=== PATIENT | female | born 1995 | race Caucasian/White ===

== ENCOUNTER 2025-08-18 08:40 | Outpatient (CLI) | payer OTHER, SELFPAY | END 2025-08-18 08:41 | disposition home or self-care (01) | LOC: NFLDREF 08-21 04:41 | PROVIDERS: Visit Provider Advanced Practice Midwife | DX: Z34.93 Encounter for supervision of normal pregnancy, unspecified, third trimester (principal) | CPT/HCPCS: 85027; 86592 ==

== ENCOUNTER 2025-08-20 08:30 | Outpatient (CLI) | payer OTHER, SELFPAY | END 2025-08-20 08:31 | disposition home or self-care (01) | LOC: NFLDREF 08-25 21:16 | PROVIDERS: Visit Provider Advanced Practice Midwife | DX: Z34.93 Encounter for supervision of normal pregnancy, unspecified, third trimester (principal) | CPT/HCPCS: 82951; 82952 ==

== ENCOUNTER 2025-08-24 08:57 | Outpatient (CLI) | payer OTHER, SELFPAY ==
[2025-08-24] VITALS (23 sets, daily range): BP systolic 144–183; BP diastolic 96–110; PULSE 104–119; O2SAT 94–98
--- NOTE | 2025-08-24 09:13 | CRLHL7_ITS ---
For Patients: As a result of the Cures Act, medical imaging exams and procedure reports are released immediately into your electronic medical record. You may view this report before your referring provider. If you have questions, please contact your health care provider. OB ULTRASOUND BIOPHYSICAL PROFILE CLINICAL HISTORY: Arrythmia. TECHNIQUE: Real time strong scale imaging of the fetus was performed. Transabdominal imaging performed. COMPARISON: None. FINDINGS: RICHARD by US: 10/30/2025. GA: 30 weeks 3 days. Gestation: Single. Cervix: Not visualized. Positioning: Breech. Dopplers: Heart Rate: 162 bpm. IMPRESSION: 1. Biophysical profile 03/15 with absent respiratory activity. 2. arrythmia. Robin Manning M.D. Diagnostic Radiologist [email or web address] Transcribed: 10:45 am DW/Dictated by: Robin Manning MD @ 08/24/2025 10:36:00 AM (Electronically Signed)
[2025-08-24 09:31] LABS: Hematocrit* 36.4 % (33.0-51.0); Hemoglobin* 12.1 gm/dL (12.0-16.0); Mean Corpuscular HGB Conc 33 gm/dL (32-36); Mean Corpuscular Hemoglobin 29 pg (26-34); Mean Corpuscular Volume 88 fL (80-100); Red Blood Count* 4.15 m/uL (4.00-5.20); White Blood Count* 12.76 K/uL (4.50-11.00)
[2025-08-24 09:40] LABS: Slide Review Reflex No
[2025-08-24 09:41] LABS: Appearance Urine Clear (Clear)
[2025-08-24 10:00] LABS: Protein Creatinine Ratio Urine 0.58 (0-0.19)
[2025-08-24 10:34] LABS: Blood Urea Nitrogen* 8 mg/dL (5-24); Creatinine* 0.5 mg/dL (0.5-1.5); Estimated Glomerular Filt Rate 129 ml/min
[2025-08-24 10:35] LABS: Alanine Aminotransferase* 23 U/L (4-35); Aspartate Amino Transferase* 27 U/L (12-35)
--- NOTE | 2025-08-24 10:50 | P.OBT_ITS ---
History of Present Illness History of Present Illness Date Seen: 08/24/25 History of Present Illness: Eboni is 30 year old at 30 3/7 weeks gestation by 1st trimester US, RICHARD 10/30/2025, presenting for evaluation of sustained elevated BP in clinic. She was sent to triage for further evaluation and has had subsequent mild range blood pressures followed by severe range blood pressures. She was initially difficult to monitor due to audible arrhythmia therefore BPP was ordered. BPP was 6/8, 2 off for breathing. She has had mild range to severe range blood pressures, none that have been treated at this time. Patient is otherwise asymptomatic. She has reported a mild headache but feels its from the chaos this morning and lack of sleep. She denies any cramping or contractions, leaking of fluid, or bleeding. She does endorse movement. Consulted with OB who recommended MFM consult. [facility] MFM consulted who discussed that she would recommend we call this Pre-eclampsia with severe features at this time. She recommended transfer to [place] antepartum, start magnesium bolus, steroids, and treating BP per protocol. P/c ratio was available at time of consultation, 0.58 with previous result in early of 0.1. All other labs were pending but have since r esulted as WNL, AST 27, ALT 23. Eboni transferred to [facility] at 28 3/7 weeks gestation for care. At the time of transfer, she reported she had been diagnosed with Chronic HTN and had been started on medications around 17 weeks off but that they made her feel awful and short of breath with breathing concerns so she stopped them shortly after. Her blood pressure at her transfer visit was normotensive and she had reported normotensive blood pressures at home. She was not restarted on BP meds at that time but was recommended to continue to monitor her BP's at home. She reports she has not been doing this. She presented today, 08/24/2025, for her routine pretatal visit at 30 3/7 weeks and had two severe range blood pressures in clinic. Her is otherwise complicated with Diet controlled GDM, newly diagnosed. OB PROBLEM LIST : Jaime Transfer from [facility] at 28.3 weeks #Gestational diabetes GDM A1 (Diet controlled) Failed 3 hr (102, 190, 171, 144) Nutrition consult-ordered Weekly testing starting at 40 weeks? Growth US every 4 weeks starting at 28 weeks ? Delivery recommended 39 0/7-40 6/7 weeks? # Chronic hypertension (HTN diagnosed before or prior to 20weeks) Baseline pre-e labs including 24 urine: WNL? Recommended baby ASA, was not taking; encouraged BP well controlled, NOT on medication at transfer visit Was on labetalol prescribed at 17 weeks and having SOB/breathing issues so stopped 08/06; was not taking consistently BP stable at transfer visit, will continue without meds and monitor. BP's at home 120/80's Weekly pre-e labs w/ urine p/c ratio starting at 32 weeks if on meds Growth US every 4 weeks starting at 28 weeks.?*Previous site planned BPP at 3 2 and 36 week with growth Delivery recommended at 37 0/7-39 6/7 weeks?(38 0/7- 39 6/7 weeks if not on meds) # Rubella non-immune # Varicella non-immune? Transfer records (03/31/2025): Blood type: B+, antibody screen negative.??? Hgb: 14.8??? Platelets: 291??? Rubella: non-immune??? Varicella: non-immune? RPR: non-reactive??? HBsAg: non-reactive??? Hep C: negative? HIV: negative??? UC: <10,000 multiple organisms? GC/Chlamydia: negative/negative??? Genetic screening: NIPT, low risk? Pap: 03/2025; NIL, HPV neg Baseline Pre-e: BUN: 11 AST: 21 ALT: 32 Creatinine: 0.59 p/c ratio: 0.1 Imaginst trimester (03/17/25): 7.4 weeks by US, 8.5 by LMP; dating by 1st trimester US. Small FRANCIA 4x5x9 mm. Anatomy US (06/18/2025): Normal anatomy, no anomalies noted, dating consistent. Posterior placenta, EFW 74%. Growth US (07/21/2025): Normal growth interval. EFW 68%ile, AC 79%ile. COVID: initial series, declined 08/10/2025 Flu: declined 08/10/2025 TDap: Declines Meds Home Medications and Allergies Home Medications ?Medication ?Instructions ?Recorded ?Confirmed ?Type vits 168-iron 27 mg-folic cap PO 08/10/25 History acid 800 mcg-omega3 235 mg capsule (One-A-Day -1) Blood Glucose Meter #1 ea 08/20/25 08/24/25 Rx Test Strips #200 ea 08/20/25 08/24/25 Rx lancets #200 ea 08/20/25 08/24/25 Rx aspirin 81 mg chewable tablet 81 mg PO QDAY 08/24/25 1 10/24/24 History Allergies Allergy/AdvReac Type Severity Reaction Status Date / Time labetalol AdvReac Intermediate Difficulty Verified 08/24/25 09:15 Breathing [facility] Medical History (Updated 08/24/25 @ 11:07 by Asia Mendez CNM) Mold exposure ?Z77.120 - Contact with and (suspected) exposure to mold (toxic) (ICD-10) PCOS (polycystic ovarian syndrome) ?E28.2 - Polycystic ovarian syndrome (ICD-10) Finger fracture ?S62.609A - Fracture of unspecified phalanx of unspecified finger, initial encounter for closed fracture (ICD-10) Surgical History (Updated 08/10/25 @ 08:15 by Asia Mendez CNM) H/O tympanostomy ?Z98.890 - Other specified postprocedural states (ICD-10) H/O hand surgery ?Z98.890 - Other specified postprocedural states (ICD-10) Social History (Updated 08/10/25 @ 12:41 by Asia Mendez CNM) Narrative: SOCIAL??? Education: Bachelors of Science??? Work: Teacher, not currently working??? Partner: Jaime, advisory software engineer??? Lives with: ? Pets: none Abuse: Denies past/present??? Special Diet: Avoids gluten, preferred??? Ok with a blood transfusion: yes??? Culture or protestant beliefs: denies? RISK FACTORS??? Exercise Times/wk: Walking, pilates 2-3x per week??? Depression/Anxiety: hx of anxiety undiagnosed??? AC: 5 PHQ 9: 5??? Seat Belt Use: Routinely?? Smoking: Denies past/present??? Alcohol/day: Denies while ??? Caffeine: Cup of coffee??? Drug Use: Denies past/present??? MRSA: Remote hx of in high school; 2 negatives after and since cleared??? What is your current living situation?: I presently have a place to live Problems where you live: no known problems In the past 12 months, utilities in danger of being shut off: no In past 12 months, lack of transportation kept you from medical appts, meetings, work, or getting things needed for daily living: no In the past 12 mos, have been you worried that your food would run out before you had money to buy more?: never true In the past 12 mos, the food you bought just didn't last and you didn't have money to buy more?: never true Smoking Status: Never smoker How often does anyone, including family, friends and others, physically hurt you : never How often does anyone, including family, friends and others, insult or talk down to you: never How often does anyone, including family, friends and others, threaten you with harm: never How often does anyone, including family, friends and others, scream or curse at you: never History History 1 Elective abortions Para 0 Spontaneous abortions Hx # Term Pregnancies Ectopic pregnancies Hx # Pregnancies Multiple births Number of Living Children 0 OB - H&P: Exam Physical Exam Vital signs: Pulse BP Pulse Ox 113 H 183/110 H 97 08/24/25 10:47 08/24/25 10:47 08/24/25 10:41 Narrative: Vitals Reviewed Constitutional:? Alert and oriented x3 HEENT:? Normocephalic, atraumatic Neck:? Supple Abdomen:? Soft, nontender, and gravid. Breech by Riley. Extremities:? No edema or erythema Cervix: Deferred BPP: IMPRESSION: 1. Biophysical profile 03/15 with absent respiratory activity. 2. arrythmia. 3. Breech Robin Manning M.D. Results Labs Laboratory Tests 08/24/25 08/24/25 Range/Units 09:30 09:24 WBC 12.76 H (4.50-11.00) K/uL RBC 4.15 (4.00-5.20) m/uL Hgb 12.1 (12.0-16.0) gm/dL Hct 36.4 (33.0-51.0) % MCV 88 (80-100) fL MCH 29 (26-34) pg MCHC 33 (32-36) gm/dL Plt Count 260 (140-440) K/uL BUN 8 (5-24) mg/dL Creatinine 0.5 (0.5-1.5) mg/dL Estimated GFR 129 ml/min AST 27 (12-35) U/L ALT 23 (4-35) U/L Urine Color Yellow (Yellow) Urine Appearance Clear (Clear) Urine pH 7.5 (5.0-8.5) Ur Specific Ray 1.015 (1.000-1.030) Urine Protein Negative (Negative) Urine Glucose (UA) Negative (Negative) Urine Ketones Negative (Negative) Urine Blood Trace-intact A (Negative) Urine Nitrite Negative (Negative) Urine Bilirubin Negative (Negative) Urine Urobilinogen 0.2 (0.2-1.0) Ur Leukocyte Esterase Trace A (Negative) Urine RBC 0-2 (0-2) Urine WBC 2-5 (0-5) Ur Squamous Epith Cells Moderate A (None-Few) Urine Bacteria None (None) Urine Creatinine 27.5 mg/dL Protein/Creatinin Ratio 0.58 H (0-0.19) Urine Total Protein 16 mg/dL Assessment and Plan Assessment and plan (1) Pre-eclampsia, severe, antepartum: Status: Acute (2) Chronic hypertension affecting : Status: Acute (3) Gestational diabetes mellitus: Status: Acute (4) 30 weeks gestation of : Status: Acute (5) arrhythmia affecting , antepartum: Status: Acute Plan Assessment 30 yo at 30 3/7 weeks gestation Severe Pre-e with suspected Chronic HTN GDM, diet controlled; newly diagnosed Arrhythmia Plan: Initiate Blood pressure monitoring and treatment per protocol for severe range blood pressures Consulted with OB and [facility] Magnesium sulfate initiated 4g bolus, 2g continuous infusion. BMZ steroids for status. Aware of GDM, will monitor closely. Labs WNL with exception of P/C ratio of 0.58. GBS collected. Transfer to [facility] via ambulance, accepting provider STEVE Oliver MD
[2025-08-24] MEDS: MAGNESIUM IV 4 GM/100 ML PIGGYBACK IVPB (11:03)
[2025-08-24] MEDS: BETAMETHASONE SOD PHOS/ACETATE 6 MG/ML ML 12 MG IM (11:08)
[2025-08-24] MEDS: MAGNESIUM Infusion 40 GM/1,000 ML IV.SOLN IVPB (11:33)
--- NOTE | 2025-08-24 12:01 | PC.OBNST ---
NST Note NST Note Start: 08/24/25 09:14 Freq: ONCE Status: Active Protocol: Document 08/24/25 12:00 [facility] (Rec: 08/24/25 12:01 [facility] No Response) NST Note 1 Para (# of births) 0 EDC 10/30/25 Gestational Age In 30 Weeks & 3 Days Weeks & Days High Risk Factors High Blood Pressure - Preexisting Other Complaints Pt. had newly found audible arrythmia. BPP 6/8. Points off for breathing Reactive No Appropriate for Yes Gestational Age JEWEL Graham RNC Date 08/24/25 Reactive No Appropriate for Yes Gestational Age JEWEL Reardon RNC Date 08/24/25 OB NST charge Yes Complete NST Note Yes via Write Note The provider's electronic signature indicates the NST is reactive/appropriate for gestational age. *Note to provider: If an addendum is required, open the patient's chart and click on the note under the Nurse/Allied Health tab.
[2025-08-25 08:10] LABS: Strep B DNA Probe Negative (Negative)
[2025-08-25 08:43] LABS: Strep B Susceptibility Needed? No
== END 2025-08-24 11:45 | disposition short-term general hospital (02) ==
LOC: OB OUT 08:58 → OB 09:00
PROVIDERS: Visit Provider Advanced Practice Midwife
DX: O10.913 Unspecified pre-existing hypertension complicating pregnancy, third trimester (principal); O36.8390 Maternal care for abnormalities of the fetal heart rate or rhythm, unspecified trimester, not applicable or unspecified; O24.419 Gestational diabetes mellitus in pregnancy, unspecified control; Z3A.30 30 weeks gestation of pregnancy
CPT/HCPCS: 36415; 59025; 76819; 81001; 81003; 82565; 82570; 84156; 84450; 84460; 84520; 85027; 87081; 87086; 87653; G0463; J0702; J3475

== ENCOUNTER 2025-08-24 11:24 | Outpatient (CLI) | payer OTHER, SELFPAY | END 2025-08-24 11:25 | disposition home or self-care (01) | LOC: AMB 10-08 04:32 | PROVIDERS: Visit Provider Family Medicine | DX: O14.13 Severe pre-eclampsia, third trimester (principal); O10.913 Unspecified pre-existing hypertension complicating pregnancy, third trimester; O24.419 Gestational diabetes mellitus in pregnancy, unspecified control; Z3A.30 30 weeks gestation of pregnancy | CPT/HCPCS: A0425; A0434 ==